=== PATIENT | female | born 1935 | race Caucasian/White ===

== ENCOUNTER 2020-07-15 11:05 | Outpatient (CLI) | payer OTHER | END 2020-07-15 11:16 | disposition home or self-care (01) | LOC: RAD 11:05 | PROVIDERS: ATTEND Internal Medicine Pulmonary Disease | DX: J98.6 Disorders of diaphragm (principal); J45.30 Mild persistent asthma, uncomplicated; J30.0 Vasomotor rhinitis; J84.10 Pulmonary fibrosis, unspecified ==